=== PATIENT | female | born 1965 ===

== ENCOUNTER 2023-10-12 13:30 | Inpatient (IN) | payer OTHER ==
[~2023-10-12] VITALS: Ht 154.9 cm; Wt 44.9 kg
[2023-10-17] MEDS ORDERED: Loperamide 2 MG CAP PO PRN (05:30)
[2023-10-17] MEDS ORDERED: Baclofen 10 MG TAB PO PRN (05:30)
[2023-10-17 06:00] VITALS: BP 117/77; PULSE 90; TEMP 98.2
[2023-10-17] MEDS ORDERED: Insulin Lispro (HumaLOG) SQ SCH (08:00)
[2023-10-17] MEDS ORDERED: metFORMIN 500 MG TAB PO SCH (08:00)
[2023-10-17] MEDS ORDERED: Acetaminophen 500 MG TAB PO SCH (09:00)
[2023-10-17] MEDS ORDERED: Fenofibrate 54 MG TABLET PO SCH (09:00)
[2023-10-17] MEDS ORDERED: oxyCODONE 5 MG TAB PO PRN (09:45)
[2023-10-17] MEDS ORDERED: Magnesium Sulfate 4% 50 ML IV ONE (12:45)
[2023-10-17 18:01] VITALS: BP 126/75; PULSE 82; TEMP 98.1
[2023-10-17 21:00] VITALS: BP_SYST 126
[2023-10-17] MEDS ORDERED: Atorvastatin 20 MG TAB PO SCH (21:00)
[2023-10-17] MEDS ORDERED: Ondansetron 4 MG/2 ML VIAL IV PRN (21:00)
[2023-10-17] MEDS ORDERED: QUEtiapine 100 MG TAB PO SCH (21:00)
[2023-10-18 06:04] VITALS: BP 131/81; PULSE 76; TEMP 97.7
[2023-10-18 07:15] VITALS: BP_SYST 131
[2023-10-18 17:36] VITALS: BP 115/75; PULSE 85; TEMP 98.1
[2023-10-18 18:50] VITALS: BP_SYST 115
[2023-10-18 22:01] VITALS: BP 103/64; PULSE 83
[2023-10-19 05:16] VITALS: BP 136/81; PULSE 91; TEMP 97.6
[2023-10-19 06:53] VITALS: BP_SYST 136
[2023-10-19 17:06] VITALS: BP 145/87; PULSE 95; TEMP 97.9
[2023-10-19 19:00] VITALS: BP_SYST 145
[2023-10-20 05:56] VITALS: BP 128/85; PULSE 92; TEMP 98.3
[2023-10-20 17:07] VITALS: BP 125/76; PULSE 89; TEMP 98.1
[2023-10-20 18:55] VITALS: BP_SYST 125
[2023-10-21] VITALS (7 sets, daily range): BP systolic 137–171; BP diastolic 89–105; PULSE 87–97; TEMP 97.9–98.4
[2023-10-21] MEDS ORDERED: Dextrose 50% Water 25 GM/50 ML SYRINGE IV PRN (07:30)
[2023-10-21] MEDS ORDERED: Glucagon 1 MG VIAL IM PRN (07:30)
[2023-10-21] MEDS ORDERED: Dextrose (Glucose) 15 GM (4 x 3.75 GM) Chewable TABLET PACK PO PRN (07:30)
[2023-10-21] MEDS ORDERED: amLODIPine 10 MG TAB PO ONE (17:15)
[2023-10-21] MEDS ORDERED: hydrALAZINE 10 MG TAB PO PRN (18:45)
[2023-10-22 06:01] VITALS: BP 125/89; PULSE 97; TEMP 97.6
[2023-10-22 06:49] VITALS: BP_SYST 125
[2023-10-22 17:05] VITALS: BP 155/99; PULSE 100; TEMP 98.4
[2023-10-22 19:01] VITALS: BP_SYST 155
[2023-10-23 05:42] LABS: COLLECTION METHOD CLEAN CATCH
[2023-10-23 05:46] LABS: PH 5.5 (5.0-8.5); URINE APPEARANCE CLEAR (CLEAR/HAZY); URINE BLOOD NEGATIVE (NEGATIVE); URINE COLOR YELLOW (YELLOW); URINE GLUCOSE NEGATIVE (NEGATIVE); URINE KETONE NEGATIVE (NEGATIVE); URINE NITRATE NEGATIVE (NEGATIVE); URINE PROTEIN(semi-quant) 2+ (NEGATIVE); URINE UROBILINOGEN 0.2 E.U/dL (0.2-1.0)
[2023-10-23 06:06] VITALS: BP 113/77; PULSE 87; TEMP 97.8
[2023-10-23 06:30] VITALS: BP_SYST 113
[2023-10-23 17:27] VITALS: BP 149/94; PULSE 93; TEMP 98.5
[2023-10-23 19:20] VITALS: BP_SYST 149
[2023-10-24 05:58] VITALS: BP 117/82; PULSE 84; TEMP 98
[2023-10-24] MEDS ORDERED: TRICOR 48MG48 MG PO (08:52)
[2023-10-24] MEDS ORDERED: ASPIRIN 32325 MG/TAB PO (08:52)
[2023-10-24] MEDS ORDERED: GLUCOPHAGE500 MG/TAB PO (08:52)
[2023-10-24] MEDS ORDERED: CRESTOR 10MG10 MG PO (08:54)
[2023-10-24] MEDS ORDERED: SEROQUEL XR150 MG PO (08:54)
[2023-10-24] MEDS ORDERED: HUMALOG MIX 75/10 ML SQ (08:54)
[2023-10-24] MEDS ORDERED: LIORESAL 1010 MG/TAB PO (08:55)
[2023-10-24] MEDS ORDERED: ASPI325T6 PO (08:55)
[2023-10-24] MEDS ORDERED: TYLENOL 500MG500 MG PO (08:56)
[2023-10-24] MEDS ORDERED: ROXICODONE 55 MG/TAB PO (08:57)
== END 2023-10-24 12:07 | disposition home health service (06) | DRG 561 ==
PROVIDERS: Internal Medicine; Physician Assistant; ADMIT Physical Medicine & Rehabilitation Sports Medicine
DX: S72.145D Nondisplaced intertrochanteric fracture of left femur, subsequent encounter for closed fracture with routine healing (principal); R53.81 Other malaise; E11.9 Type 2 diabetes mellitus without complications; F17.200 Nicotine dependence, unspecified, uncomplicated; M85.80 Other specified disorders of bone density and structure, unspecified site; R26.89 Other abnormalities of gait and mobility; Z66 Do not resuscitate; I10 Essential (primary) hypertension; F31.9 Bipolar disorder, unspecified; D75.839 Thrombocytosis, unspecified; D72.829 Elevated white blood cell count, unspecified; E78.5 Hyperlipidemia, unspecified; R35.0 Frequency of micturition; Z74.09 Other reduced mobility; W19.XXXD Unspecified fall, subsequent encounter; Z86.19 Personal history of other infectious and parasitic diseases; Z79.4 Long term (current) use of insulin; Z79.82 Long term (current) use of aspirin; Z79.891 Long term (current) use of opiate analgesic; Z79.899 Other long term (current) drug therapy
CPT/HCPCS: A9284; J1815; J2405; J3475